=== PATIENT | male | born 1990 | race Caucasian/White ===

== ENCOUNTER 2017-12-27 11:26 | Emergency (ER) | payer SELFPAY ==
[~2017-12-27] VITALS: Ht 180.3 cm; Wt 71.7 kg
[2017-12-27 11:42] VITALS: BP 138/81
--- NOTE | 2017-12-27 12:07 | NUR ---
PT PROVIDED W/ ORTHO BOOT. D/C IN STABLE CONDITION.
== END 2017-12-27 12:08 | disposition home or self-care (01) ==
LOC: ER 11:29
DX: S93.492A Sprain of other ligament of left ankle, initial encounter (principal); F17.200 Nicotine dependence, unspecified, uncomplicated; W22.8XXA Striking against or struck by other objects, initial encounter; Y93.01 Activity, walking, marching and hiking; Y92.89 Other specified places as the place of occurrence of the external cause; Y99.8 Other external cause status
CPT/HCPCS: 99282; A4606; Z7610

== ENCOUNTER 2020-04-07 12:59 | Emergency (ER) | payer BC, MEDICAID ==
[~2020-04-07] VITALS: Ht 175.3 cm; Wt 70.3 kg
[2020-04-07 13:14] VITALS: BP 134/81
[2020-04-07] MEDS ORDERED: OLANZAPINE 5 MG TABLET PO ONE (13:30)
--- NOTE | 2020-04-07 14:00 | NUR ---
PT ELOPED FROM THE FACILITY
== END 2020-04-07 14:02 | disposition left against medical advice (07) ==
LOC: ER 13:13
DX: F29 Unspecified psychosis not due to a substance or known physiological condition (principal); F17.200 Nicotine dependence, unspecified, uncomplicated